=== PATIENT | female | born 1985 | race Caucasian/White ===

== ENCOUNTER 2016-11-12 23:06 | Emergency (ER) | payer MEDICAID ==
[~2016-11-12] VITALS: Ht 162.6 cm; Wt 83.6 kg
[2016-11-13] MEDS ORDERED: DIAZEPAM 5 MG TABLET PO ONE (00:30)
[2016-11-13] MEDS ORDERED: KETOROLAC 30 MG/1 ML IM ONE (00:30)
[2016-11-13] MEDS ORDERED: KETOROLAC 30 MG/1 ML ONE (00:50)
[2016-11-13] MEDS ORDERED: DIAZEPAM 5 MG TABLET ONE (00:50)
[2016-11-13 01:39] VITALS: BP 122/74
== END 2016-11-13 01:42 | disposition home or self-care (01) ==
LOC: ED 11-13 00:07
DX: S16.1XXA Strain of muscle, fascia and tendon at neck level, initial encounter (principal); Z90.49 Acquired absence of other specified parts of digestive tract; Z90.710 Acquired absence of both cervix and uterus; Z87.891 Personal history of nicotine dependence; W01.0XXA Fall on same level from slipping, tripping and stumbling without subsequent striking against object, initial encounter; Y93.89 Activity, other specified; Y92.89 Other specified places as the place of occurrence of the external cause; Y99.8 Other external cause status
CPT/HCPCS: 72125; 96372; J1885

== ENCOUNTER 2017-01-08 19:46 | Emergency (ER) | payer MEDICAID ==
[~2017-01-08] VITALS: Ht 162.6 cm; Wt 84.5 kg
[2017-01-08 21:14] VITALS: BP 120/65
== END 2017-01-08 21:17 | disposition home or self-care (01) ==
LOC: ED 21:11
DX: R07.89 Other chest pain (principal); I25.2 Old myocardial infarction; Z90.49 Acquired absence of other specified parts of digestive tract; Z90.710 Acquired absence of both cervix and uterus
CPT/HCPCS: 71010; 93005; 99284

== ENCOUNTER 2018-11-22 00:41 | Emergency (ER) | payer MEDICAID, OTHER ==
[~2018-11-22] VITALS: Ht 162.6 cm; Wt 79.8 kg
[2018-11-22 00:52] VITALS: BP 138/72
--- NOTE | 2018-11-22 00:53 | NUR ---
FIRST CONTACT WITH PT. PT C/o pain LUQx1 month. +N,D/-V. C/o blood in stoolx1 week. PT'S AOX4. RESPS EVEN AND UNLABORED. BP/SPO2 MONITORS IN PLACE. CALL LILGHT WITHIN REACH. AWAITING ORDERES.
--- NOTE | 2018-11-22 00:58 | NUR ---
REPORT GIVEN TO EZE MUÑOZ.
[2018-11-22] MEDS ORDERED: MAALOX/HYOSCYAMINE/LIDOCAINE 45 ML BTL PO ONE (01:00)
--- NOTE | 2018-11-22 01:00 | NUR ---
BS REPORT OF PT FROM TONI MELARA AND ASSUMING CARE OF PT AT THIS TIME.
[2018-11-22] MEDS ORDERED: MAALOX/HYOSCYAMINE/LIDOCAINE 45 ML BTL ONE (01:05)
[2018-11-22 01:23] LABS: BASOPHILS # (AUTO) 0.04 x10^3/uL (0-0.1); BASOPHILS % (AUTO) 0 % (0-1); EOSINOPHILS # (AUTO) 0.46 x10^3/uL (0-0.4); EOSINOPHILS % (AUTO) 5 % (1-7); LYMPHOCYTES # (AUTO) 3.07 x10^3/uL (1-3.4); LYMPHOCYTES % (AUTO) 30 % (22-44); MD NO; MEAN CORPUSCULAR HEMOGLOBIN 30.6 pg (27.0-34.8); MEAN CORPUSCULAR HGB CONC 33.2 g/dL (32.4-35.8); MEAN CORPUSCULAR VOLUME 92.3 fL (80-100); MEAN PLATELET VOLUME 10.5 fL (7.4-10.4); MONOCYTES # (AUTO) 0.67 x10^3/uL (0.2-0.8); MONOCYTES % (AUTO) 7 % (2-9); NEUTROPHILS # (AUTO) 5.92 x10^3/uL (1.8-6.8); NEUTROPHILS % (AUTO) 58 % (42-75); PLATELET COUNT 267 x10^3/uL (130-400); RED BLOOD COUNT 4.59 x10^6/uL (3.82-5.3); RED CELL DISTRIBUTION WIDTH 14.1 % (9.6-15.2)
[2018-11-22 01:32] LABS: ALANINE AMINOTRANSFERASE 33 U/L (12-78); ALBUMIN 3.8 g/dL (3.4-5.0); ANION GAP 7 mmol/L (5-15); CALCIUM 8.3 mg/dL (8.5-10.1); CHLORIDE 111 mmol/L (98-107); CREATININE 0.77 mg/dL (0.55-1.02)
[2018-11-22 01:34] LABS: ALKALINE PHOSPHATASE 96 U/L (45-117); BILIRUBIN,TOTAL 0.2 mg/dL (0.2-1.0); TOTAL PROTEIN 7.5 g/dL (6.4-8.2)
[2018-11-22 01:55] LABS: HCG UR SG 1.026 (1.003-1.030); MICROSCOPIC NOT IND
[2018-11-22 02:04] LABS: CULTURE INDICATED? NO
--- NOTE | 2018-11-22 03:02 | NUR ---
pt d/c with d/c summary and scripts. all questions answered. pt ambulates to registration desk with steady gait for d/c home with friend. pt denies any other needs pertaining to this visit.
== END 2018-11-22 03:08 | disposition home or self-care (01) ==
LOC: ED 02:52
DX: K29.00 Acute gastritis without bleeding (principal); K62.5 Hemorrhage of anus and rectum; K64.4 Residual hemorrhoidal skin tags; Z87.891 Personal history of nicotine dependence; Z90.710 Acquired absence of both cervix and uterus; Z90.49 Acquired absence of other specified parts of digestive tract; Z98.890 Other specified postprocedural states
CPT/HCPCS: 36415; 80053; 81003; 81025; 83690; 85025; 99283

== ENCOUNTER 2019-05-08 19:23 | Emergency (ER) | payer BC, OTHER ==
[~2019-05-08] VITALS: Ht 162.6 cm; Wt 79.8 kg
--- NOTE | 2019-05-08 20:30 | NUR ---
NOT IN LOBBY PER SENIOR [employer] DEVELOPER
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
--- NOTE | 2019-05-08 20:56 | NUR ---
PT TO XRAY.
--- NOTE | 2019-05-08 21:05 | NUR ---
REPORT GIVEN TO TONI LOPEZ. CARE TRANSFERRED.
[2019-05-08 21:53] LABS: BASOPHILS # (AUTO) 0.06 x10^3/uL (0-0.1); BASOPHILS % (AUTO) 1 % (0-1); EOSINOPHILS % (AUTO) 3 % (1-7); LYMPHOCYTES # (AUTO) 2.56 x10^3/uL (1-3.4); LYMPHOCYTES % (AUTO) 23 % (22-44); MD NO; MEAN CORPUSCULAR HEMOGLOBIN 30.2 pg (27.0-34.8); MEAN CORPUSCULAR HGB CONC 33.5 g/dL (32.4-35.8); MEAN CORPUSCULAR VOLUME 90.4 fL (80-100); MEAN PLATELET VOLUME 10.6 fL (7.4-10.4); MONOCYTES # (AUTO) 0.96 x10^3/uL (0.2-0.8); MONOCYTES % (AUTO) 9 % (2-9); NEUTROPHILS # (AUTO) 7.34 x10^3/uL (1.8-6.8); NEUTROPHILS % (AUTO) 65 % (42-75); PLATELET COUNT 229 x10^3/uL (130-400); RED BLOOD COUNT 4.61 x10^6/uL (3.82-5.3); RED CELL DISTRIBUTION WIDTH 13.7 % (9.6-15.2)
[2019-05-08] MEDS ORDERED: SODIUM CHLORIDE FLUSH 10ML SYR IVF ONE (22:00)
[2019-05-08 22:03] LABS: ALBUMIN 3.6 g/dL (3.4-5.0); ANION GAP 3 mmol/L (5-15); CALCIUM 8.4 mg/dL (8.5-10.1); CHLORIDE 109 mmol/L (98-107); CREATININE 0.85 mg/dL (0.55-1.02)
[2019-05-08] MEDS ORDERED: OMNIPAQUE 350 MG/ML, 100ML BOTTLE ONE (22:35)
[2019-05-08 23:16] VITALS: BP 129/74
== END 2019-05-08 23:17 | disposition home or self-care (01) ==
LOC: ED 21:40
DX: S16.1XXA Strain of muscle, fascia and tendon at neck level, initial encounter (principal); S20.211A Contusion of right front wall of thorax, initial encounter; S40.011A Contusion of right shoulder, initial encounter; R10.11 Right upper quadrant pain; Z90.49 Acquired absence of other specified parts of digestive tract; Z90.710 Acquired absence of both cervix and uterus; V49.50XA Passenger injured in collision with unspecified motor vehicles in traffic accident, initial encounter; Y93.89 Activity, other specified; Y92.411 Interstate highway as the place of occurrence of the external cause; Y99.8 Other external cause status
CPT/HCPCS: 36415; 71046; 73030; 74177; 80048; 82040; 84703; 85025; 99284; Q9967

== ENCOUNTER 2019-05-09 16:45 | Emergency (ER) | payer BC ==
[~2019-05-09] VITALS: Ht 165.1 cm; Wt 79.4 kg
[2019-05-09 16:58] VITALS: BP 117/60
[2019-05-09] MEDS ORDERED: CYCLOBENZAPRINE 10 MG TABLET ONE (18:25)
[2019-05-09] MEDS ORDERED: CYCLOBENZAPRINE 10 MG TABLET PO ONE (18:30)
== END 2019-05-09 18:52 | disposition home or self-care (01) ==
LOC: ED 18:45
DX: S16.1XXA Strain of muscle, fascia and tendon at neck level, initial encounter (principal); R25.2 Cramp and spasm; Z90.49 Acquired absence of other specified parts of digestive tract; Z90.710 Acquired absence of both cervix and uterus; V43.62XA Car passenger injured in collision with other type car in traffic accident, initial encounter; Y93.89 Activity, other specified; Y92.488 Other paved roadways as the place of occurrence of the external cause; Y99.8 Other external cause status
CPT/HCPCS: 72125; 99284